=== PATIENT | female | born 1955 | race Caucasian/White ===

== ENCOUNTER → 2023-09-02 10:10 | Outpatient (CLI) | payer MEDICARE, MEDICAID, SELFPAY ==
--- NOTE | 2023-09-02 10:17 | DI.MRI.S_ITS ---
PROCEDURE: MR HEAD/BRAIN WO CON INDICATIONS: Congestive heart failure, memory impairment TECHNIQUE: Non-contrast axial T1 spin echo, axial T2 fast spin echo, sagittal and axial FLAIR, coronal T2 fast spin echo, axial gradient echo, axial diffusion and ADC through the brain. COMPARISON: None. FINDINGS: Image quality: Excellent. CSF spaces: Ventricles appear symmetric in size and shape. Basal cisterns are patent. No extra-axial fluid collections. Brain: No intracranial bleeds or mass effects. There is cerebral volume loss for age. There are periventricular and deep white matter chronic small vessel ischemic changes. Brainstem appears normal. Diffusion-weighted images show no acute infarct. No chronic ischemic insults. Normal intravascular flow voids are present. Skull and face: Calvarial bone marrow is normal in signal. Orbits are normal. Sinuses: Sinuses demonstrate scattered areas of mucosal thickening. IMPRESSION: 1. No acute intracranial process. 2. Mild to moderate atrophy and chronic microvascular ischemic changes. Dictated by: Marietta Cook M.D. on 09/02/2023 at 14:16 Approved by: Marietta Cook M.D. on 09/02/2023 at 14:17
--- NOTE | 2023-09-02 10:18 | DI.ECHO.S_ITS ---
[facility]---------+ [facility] +---------+ : : [address] [place] : : : : [id number] : : : : Phone: [phone]---------+ Echocardiogram Report + + :Name: AURELIA DALY Study Date: 09/02/2023 Height: 60 in : :[facility] ReadingLocation: Weight: 188 lb : : Gender: Female BSA: 1.8 m2 : :: 1955 Age: 68 yrs BP: 169/80 mmHg: :Reason For Study: CONGESTIVE HEART FAILURE : :Ordering Physician: WILLAM, : :GARCÍA Performed By: Moise Villalta : :Referring: GARCÍA QUARLES : + + Interpretation Summary Normal sinus rhythm. Normal LV size; borderline concentric LVH; EF is 55-60%. Normal chamber sizes. No valvular abnormalities. No prior study available for comparison. Procedure: A two-dimensional transthoracic echocardiogram with color flow and Doppler was performed. The study quality was technically adequate. There is no prior echocardiogram noted for this patient. The patient was in normal sinus rhythm during the exam. The heart rate ranged between 57-83 bpm during the study. Left Ventricle: The left ventricle is normal in size. There is borderline concentric left ventricular hypertrophy. The ejection fraction is estimated to be 55-60%. Right Ventricle: The right ventricle is normal in size and function. The right ventricular systolic function is normal. Atria: The left atrial size is normal. Right atrial size is normal. The interatrial septum grossly appears intact with no obvious evidence for an atrial septal defect. Mitral Valve: The mitral valve is normal in structure and function. There is no mitral valve stenosis. There is mild mitral regurgitation. Aortic Valve: The aortic valve is trileaflet. There is no aortic valve stenosis. No aortic regurgitation is present. Tricuspid Valve: The tricuspid valve is normal in structure and function. There is no tricuspid stenosis. No tricuspid regurgitation. Pulmonic Valve: The pulmonic valve is not well visualized. There is no pulmonic valvular stenosis. There is no pulmonic valvular regurgitation. Great Vessels: The aortic root is normal size. The dimensions of the ascending aorta are normal. The IVC is of normal diameter and collapses greater than 50% with a sniff. This suggests a low right atrial pressure of 3 mm Hg. Pericardium/ Pleura There is no pericardial effusion. There is no pleural effusion. MMode/2D Measurements & Calculations LVIDd: 4.9 cm LVOT diam: 2.2 cm LVIDs: 3.7 cm Ao root diam: 3.1 cm FS: 23.6 % asc Aorta Diam: 3.0 cm IVSd: 0.96 cm Ao Arch Diam (Prox Trans): 2.7 cm LVPWd: 1.2 cm LV pérez. diameter/BSA (cm/m^2): 2.7 LV sys. diameter/BSA (cm/m^2): 2.0 LA A2 area: 16.5 cm2 RA long axis: 4.3 cm LA A4 area: 21.9 cm2 RA area: 11.7 cm2 LA length (vol): 6.2 cm RA vol: 27.4 ml LA vol: 49.6 ml RA : 15.1 ml/m2 LA vol index: 27.3 ml/m2 IVC diam: 1.2 cm RVD1 (basal): 2.8 cm RVD2 (mid): 2.1 cm TAPSE: 2.0 cm Doppler Measurements & Calculations Ao V2 max: 130.6 cm/sec LVOT Max Ramón: 123.6 cm/sec Ao V2 mean: 90.3 cm/sec LV V1 max P.1 mmHg Ao max P.8 mmHg LV V1 VTI: 26.4 cm Ao mean P.6 mmHg THANG(I,D): 3.8 cm2 Ao V2 VTI: 26.8 cm THANG(V,D): 3.7 cm2 sev ratio: 0.98 THANG indexed to BSA (cm^2/m^2): 2.1 MV E max ramón: 65.6 cm/sec PA V2 max: 93.6 cm/sec MV A max ramón: 81.2 cm/sec PA V2 mean: 66.6 cm/sec MV E/A: 0.81 PA mean P.9 mmHg Med Peak E' Ramón: 4.2 cm/sec PA pr([employer]el): 41.3 mmHg E/E' med: 15.6 Lat Peak E' Ramón: 9.6 cm/sec E/E' lat: 6.9 E/e' average: 11.3 MV dec time: 0.25 sec SV([facility]): 102.5 ml Electronically signed by: Kim Butler M.D. on Reading Physician:09/03/2023 06:46 AM
== END ==
LOC: ECHO 10:15
PROVIDERS: PCP Internal Medicine; Referring Provider Internal Medicine; Visit Provider Internal Medicine
DX: R41.3 Other amnesia (principal); I35.1 Nonrheumatic aortic (valve) insufficiency; I50.9 Heart failure, unspecified
CPT/HCPCS: 70551; 93306